=== PATIENT | male | born 1940 | race Caucasian/White ===

== ENCOUNTER 2016-06-11 09:28 | Emergency (ER) | payer SELFPAY ==
[~2016-06-11 09:28] MED LIST: ASPIRIN ENTERIC81 M1 PO; BISACODYL10 MG PO; CEPHALEXIN500 MG PO; LIPITOR40 MG PO; LISINOPRIL10 MG PO; METFORMIN HCL500 MG PO; VISTARIL25 MG PO
--- NOTE | 2016-06-11 10:20 | DIAGNOSTIC IMAGING REPORT ---
PROCEDURE: CT HEAD WITHOUT CONTRAST INDICATION: FOUND DOWN TECHNIQUE: Axial CT images were acquired through the head. Coronal and sagittal reformations were created. COMPARISON: None. FINDINGS: No intracranial hemorrhage or extraaxial fluid collections. Ventricles are normal in size, shape and position. There is no mass, mass effect or midline shift. The medina-white matter differentiation is normal. There is no edema. The calvarium is intact. The paranasal sinuses and mastoid air cells are normally aerated. The extracranial soft tissues and orbits are normal. IMPRESSION: 1. No CT evidence of acute intracranial process. 2. Findings discussed with Dr. Fernandez at 10:[address] scans at this facility use dose modulation, iterative reconstruction, and/or weight-based dosing when appropriate to reduce radiation dose to as low as reasonably achievable.
--- NOTE | 2016-06-11 10:21 | DIAGNOSTIC IMAGING REPORT ---
PROCEDURE: XR CHEST 2 VIEW INDICATION: FOUND DOWN TECHNIQUE: PA and lateral views. COMPARISON: None. FINDINGS: Lungs are clear. Cardiomegaly. Left shoulder prosthesis. Thorax is normal. IMPRESSION: 1. Cardiomegaly. Lungs clear.
--- NOTE | 2016-06-11 14:02 | ED NURSING NOTES ---
Clinical Report - Nurses [facility] [place] [address] 06/11/2016 9:29 Patient: CHARLOTTE HORTON TRIAGE Acuity: LEVEL 3. Chief Complaint: WEAKNESS. Alert. No acute distress. TYLOR COMA SCORE: Tylor Coma Scale. --09:38 Addie Morales R.N. 09:32 06/11/16. BP: 180/82. HR: 83. RR: 12. O2 saturation: 95% on room air. Temp: 98.5 F (oral). Pain level now: unknown. --09:38 Addie Morales R.N. Weight: 90.7 kg estimated. Height/Length: 72 inches Estimated. BMI: 27.1. --09:38 Addie Morales R.N. Allergies No Known Drug Allergy. --09:34 Addie Morales R.N. History Arrived by EMS. Historian: EMS. Unaccompanied. This started just prior to arrival. Treatment CAN DRYER: None. SKIN INTEGRITY ASSESSMENT: Skin integrity risk assessment was performed. Risk factors identified include restricted mobility. NUTRITIONAL RISK ASSESSMENT: The nutritional risk assessment revealed no deficiencies. FALL RISK ASSESSMENT: Fall risk assessment completed. Risk factors identified include patient age greater than 65 years and history of fall. Fall interventions initiated. Side rails up x2. Brakes on Bed in low position. Patient visible from nurses' station. Call light in reach of patient. FUNCTIONAL ASSESSMENT: Functional assessment performed: independent with the activities of daily living; hard of hearing in both ears- this hearing impairment is an ongoing problem; cognitive impairment present- this cognitive impairment is an ongoing problem. LEARNING NEEDS ASSESSMENT: A learning needs assessment was performed. Factors affecting the patient's ability to learn include physical and cognitive limitations. --09:38 Addie Morales R.N. PROBLEMS: Neuropathy. Hypertension. Corneal Ulcer. Cellulitis. Facial Cellulitis. Fall. Pruritus. Pedal Edema. Congestive Heart Failure. Anxiety Reaction. Schizophrenia. Diabetes Mellitus. Numbness of hand. Back Pain. --09:35 Addie Morales R.N. ADDITIONAL SURGERIES: Appendectomy. Hip Surgery. R hip surgery. Revision of L hip . Shoulder Surgery. --09:35 Addie Morales R.N. Assessment GENERAL / NEURO / PSYCH: Alert. Appears in no acute distress. Patient appears calm and cooperative. RESPIRATORY: Respirations not labored. CVS: Capillary refill less than 2 seconds. SKIN: Mucous membranes are pink. Skin is warm and dry. --09:38 Addie Morales R.N. Interventions ID band on patient. To treatment room. --09:38 Addie Morales R.N. NURSING PROGRESS NOTES hospital monitor, pulse oximeter and NIBP monitor placed on patient; hospital monitor- Lead II; monitor alarms on. Patient gowned. Two patient identifiers checked. Call light placed in reach. Side rails up x 2. Bed placed in lowest position. Brakes of bed on. Patient ready for evaluation- chart flagged. --09:40 Addie Morales R.N. Patient transported to [place] by stretcher with tech. --09:50 Addie Morales R.N. EKG time: (1013). EKG was ordered, performed by a tech and shown to the ED physician. --10:15 Jess Huff ER Tech1 10:06/11/2016 Site #1 started via IV in the left antecubital space with an 20g angiocath, with aseptic technique and good blood return; one attempt. Blood drawn: rainbow set. Labeled in the presence of the patient and sent to the lab. --:27 Addie Morales R.N. 10:06/11/2016 Started bag #1 1000 mL IV Fluids IV NS (Saline); at 999 mL/hr over 30 minute(s) via site #1 via IV pump. Allergies verified and confirmed 5 rights. IV patency established. IV site checked: no pain, redness, or swelling. IV flushed thoroughly pre- and post-medication administration. --: Addie Morales R.N. 11:43 06/11/16. Checked patient name and birthdate urine collected with return of yellow-colored clear urine; sample sent to lab for urinalysis. Specimen labeled in the presence of the patient. --11:43 Addie Morales R.N. 12:08 06/11/16. BP: 167/77. HR: 75. RR: 13. O2 saturation: 97% on room air. --12:08 Addie Morales R.N. 11:44 06/11/2016 IV Fluids IV NS via IV site #1 Rate Changed: bag #1 decreased to 21 mL/hr via IV pump. IV patency established. IV site checked: no pain, redness, or swelling. IV flushed thoroughly. Confirmed 5 Rights. --12:09 Addie Morales R.N. 12:08 06/11/16. The patient reports no complaints and he is calm and resting quietly. --12:08 Addie Morales R.N. 13:46 06/11/16. The patient is sleeping. --13:46 Addie Morales R.N. 13:46 06/11/16. BP: 164/75. HR: 74. RR: 16. O2 saturation: 97% on room air. --13:48 Addie Morales R.N. DISPOSITION / DISCHARGE 14:30. Condition at departure: improved. No learning barriers present. Discharge instructions provided and reviewed with the patient. Patient verbalized understanding. Written instructions provided in Belarusian. The patient was discharged home and accompanied by sales representative adding machines. He left the Emergency Department in a wheelchair and via private vehicle. Gender Studies Professor driving. Medication list reviewed and validated. --16:48 Maria Elena Noel R.N. 14:31 06/11/16. BP: 126/74. HR: 69. RR: 16. O2 saturation: 98% on room air. Temp: deferred. Pain level now: 0/10. 13:46 06/11/16. BP: 164/75. HR: 74. RR: 16. O2 saturation: 97% on room air. 12:08 06/11/16. BP: 167/77. HR: 75. RR: 13. O2 saturation: 97% on room air. 09:32 06/11/16. BP: 180/82. HR: 83. RR: 12. O2 saturation: 95% on room air. Temp: 98.5 F (oral). Pain level now: unknown. --16:48 Maria Elena Noel R.N. Locked/Released at 06/11/2016 16:48 by Maria Elena Noel R.N.
--- NOTE | 2016-06-11 14:02 | ED ORDER SUMMARY ---
..... Patient: CHARLOTTE HORTON OrderSheet [facility] VisitID: [id number] [place] [address] 75y, M Registration Date/Time: 06/11/2016 ORDER SHEET Weight: 90.7 kg (estimated) Allergies: No Known Drug Allergy GENERAL ORDERS: Chest 2V Urgent (:06/11/2016 Rashida Simental) (Ack 9:54 LNations ER Tech1) (10:25 MWinterer R.N.) CT Head wo Cont Urgent (:06/11/2016 Rashida Simental) (Ack 9:54 LNations ER Tech1) (10:25 MWinterer R.N.) Head Of Sales Promotion (Continuous) (found down) (:06/11/2016 Rashida Simental) (9:45 MWinterer R.N.) CBC w Diff Urgent (06/11/2016 Rashida Simental) (Ack 9:53 LNations ER Tech1) (10:25 MWinterer R.N.) CMP Urgent (:06/11/2016 Rashida Simental) (Ack 9:53 LNations ER Tech1) (10:25 MWinterer R.N.) UA-Culture if indicated Urgent (06/11/2016 Rashida Simental) (Ack 9:53 LNations ER Tech1) (11:53 MWinterer R.N.) PT with INR Urgent (:06/11/2016 Rashida Simental) (Ack 9:53 LNations ER Tech1) (10:25 MWinterer R.N.) Troponin-I Urgent (:06/11/2016 Rashida Simental) (Ack 9:53 LNations ER Tech1) (10:25 MWinterer R.N.) CPK Urgent (06/11/2016 Rashida Simental) (Ack 9:53 LNations ER Tech1) (10:25 MWinterer R.N.) Lactate, Serum Urgent (06/11/2016 Rashida Simental) (Ack 9:53 LNations ER Tech1) (11:21 NHouse ER Tech1) Pulse oximeter (09:43 06/11/2016 Rashida Simental) (9:45 MWinterer R.N.) EKG - ER Stat (09:43 06/11/2016 Rashida Simental) (9:45 MWinterer R.N.) MEDICATION ORDERS: IV FLUIDS: IV NS : initial bolus 500 mL (1000 mL/hr), then none - for X1 (NOW) (09:42 06/11/2016 Rashida Simental) (Ack 9:45 MWinterer R.N.) (10:27 MWinterer R.N.) ORDER SHEET NOTES: [Electronically signed by Maria Elena Noel R.N. (16:48 06/11/2016)] [Electronically signed by Fer Chaves Dr. (08:06 06/13/2016)] [Electronically locked/signed by Maria Elena Noel R.N. (16:48 06/11/2016)]
--- NOTE | 2016-06-11 14:02 | ED NURSING NOTES ---
Clinical Report - Nurses [facility] [place] [address] 06/11/2016 9:29 Patient: CHARLOTTE HORTON TRIAGE Acuity: LEVEL 3. Chief Complaint: WEAKNESS. Alert. No acute distress. TYLOR COMA SCORE: Tylor Coma Scale. --09:38 Addie Morales R.N. 09:32 06/11/16. BP: 180/82. HR: 83. RR: 12. O2 saturation: 95% on room air. Temp: 98.5 F (oral). Pain level now: unknown. --09:38 Addie Morales R.N. Weight: 90.7 kg estimated. Height/Length: 72 inches Estimated. BMI: 27.1. --09:38 Addie Morales R.N. Allergies No Known Drug Allergy. --09:34 Addie Morales R.N. History Arrived by EMS. Historian: EMS. Unaccompanied. This started just prior to arrival. Treatment MANAGER GROUP HOME: None. SKIN INTEGRITY ASSESSMENT: Skin integrity risk assessment was performed. Risk factors identified include restricted mobility. NUTRITIONAL RISK ASSESSMENT: The nutritional risk assessment revealed no deficiencies. FALL RISK ASSESSMENT: Fall risk assessment completed. Risk factors identified include patient age greater than 65 years and history of fall. Fall interventions initiated. Side rails up x2. Brakes on Bed in low position. Patient visible from nurses' station. Call light in reach of patient. FUNCTIONAL ASSESSMENT: Functional assessment performed: independent with the activities of daily living; hard of hearing in both ears- this hearing impairment is an ongoing problem; cognitive impairment present- this cognitive impairment is an ongoing problem. LEARNING NEEDS ASSESSMENT: A learning needs assessment was performed. Factors affecting the patient's ability to learn include physical and cognitive limitations. --09:38 Addie Morales R.N. PROBLEMS: Neuropathy. Hypertension. Corneal Ulcer. Cellulitis. Facial Cellulitis. Fall. Pruritus. Pedal Edema. Congestive Heart Failure. Anxiety Reaction. Schizophrenia. Diabetes Mellitus. Numbness of hand. Back Pain. --09:35 Addie Morales R.N. ADDITIONAL SURGERIES: Appendectomy. Hip Surgery. R hip surgery. Revision of L hip . Shoulder Surgery. --09:35 Addie Morales R.N. Assessment GENERAL / NEURO / PSYCH: Alert. Appears in no acute distress. Patient appears calm and cooperative. RESPIRATORY: Respirations not labored. CVS: Capillary refill less than 2 seconds. SKIN: Mucous membranes are pink. Skin is warm and dry. --09:38 Addie Morales R.N. Interventions ID band on patient. To treatment room. --09:38 Addie Morales R.N. NURSING PROGRESS NOTES manager monitoring, pulse oximeter and NIBP monitor placed on patient; manager monitoring- Lead II; monitor alarms on. Patient gowned. Two patient identifiers checked. Call light placed in reach. Side rails up x 2. Bed placed in lowest position. Brakes of bed on. Patient ready for evaluation- chart flagged. --09:40 Addie Morales R.N. Patient transported to [place] by stretcher with tech. --09:50 Addie Morales R.N. EKG time: (1013). EKG was ordered, performed by a tech and shown to the ED physician. --10:15 Jess Huff ER Tech1 10:06/11/2016 Site #1 started via IV in the left antecubital space with an 20g angiocath, with aseptic technique and good blood return; one attempt. Blood drawn: rainbow set. Labeled in the presence of the patient and sent to the lab. --:27 Addie Morales R.N. 10:06/11/2016 Started bag #1 1000 mL IV Fluids IV NS (Saline); at 999 mL/hr over 30 minute(s) via site #1 via IV pump. Allergies verified and confirmed 5 rights. IV patency established. IV site checked: no pain, redness, or swelling. IV flushed thoroughly pre- and post-medication administration. --: Addie Morales R.N. 11:43 06/11/16. Checked patient name and birthdate urine collected with return of yellow-colored clear urine; sample sent to lab for urinalysis. Specimen labeled in the presence of the patient. --11:43 Addie Morales R.N. 12:08 06/11/16. BP: 167/77. HR: 75. RR: 13. O2 saturation: 97% on room air. --12:08 Addie Morales R.N. 11:44 06/11/2016 IV Fluids IV NS via IV site #1 Rate Changed: bag #1 decreased to 21 mL/hr via IV pump. IV patency established. IV site checked: no pain, redness, or swelling. IV flushed thoroughly. Confirmed 5 Rights. --12:09 Addie Morales R.N. 12:08 06/11/16. The patient reports no complaints and he is calm and resting quietly. --12:08 Addie Morales R.N. 13:46 06/11/16. The patient is sleeping. --13:46 Addie Morales R.N. 13:46 06/11/16. BP: 164/75. HR: 74. RR: 16. O2 saturation: 97% on room air. --13:48 Addie Morales R.N. DISPOSITION / DISCHARGE 14:30. Condition at departure: improved. No learning barriers present. Discharge instructions provided and reviewed with the patient. Patient verbalized understanding. Written instructions provided in Syriac. The patient was discharged home and accompanied by rotating equipment specialist. He left the Emergency Department in a wheelchair and via private vehicle. Associate Merchandiser driving. Medication list reviewed and validated. --16:48 Maria Elena Noel R.N. 14:31 06/11/16. BP: 126/74. HR: 69. RR: 16. O2 saturation: 98% on room air. Temp: deferred. Pain level now: 0/10. 13:46 06/11/16. BP: 164/75. HR: 74. RR: 16. O2 saturation: 97% on room air. 12:08 06/11/16. BP: 167/77. HR: 75. RR: 13. O2 saturation: 97% on room air. 09:32 06/11/16. BP: 180/82. HR: 83. RR: 12. O2 saturation: 95% on room air. Temp: 98.5 F (oral). Pain level now: unknown. --16:48 Maria Elena Noel R.N. Locked/Released at 06/11/2016 16:48 by Maria Elena Noel R.N.
--- NOTE | 2016-06-11 14:02 | ED ORDER SUMMARY ---
..... Patient: CHARLOTTE HORTON OrderSheet [facility] VisitID: [id number] [place] [address] 75y, M Registration Date/Time: 06/11/2016 ORDER SHEET Weight: 90.7 kg (estimated) Allergies: No Known Drug Allergy GENERAL ORDERS: Chest 2V Urgent (:06/11/2016 Rashida Simental) (Ack 9:54 LNations ER Tech1) (10:25 MWinterer R.N.) CT Head wo Cont Urgent (:06/11/2016 Rashida Simental) (Ack 9:54 LNations ER Tech1) (10:25 MWinterer R.N.) House Fellow (Continuous) (found down) (:06/11/2016 Rashida Simental) (9:45 MWinterer R.N.) CBC w Diff Urgent (06/11/2016 Rashida Simental) (Ack 9:53 LNations ER Tech1) (10:25 MWinterer R.N.) CMP Urgent (:06/11/2016 Rashida Simental) (Ack 9:53 LNations ER Tech1) (10:25 MWinterer R.N.) UA-Culture if indicated Urgent (06/11/2016 Rashida Simental) (Ack 9:53 LNations ER Tech1) (11:53 MWinterer R.N.) PT with INR Urgent (:06/11/2016 Rashida Simental) (Ack 9:53 LNations ER Tech1) (10:25 MWinterer R.N.) Troponin-I Urgent (:06/11/2016 Rashida Simental) (Ack 9:53 LNations ER Tech1) (10:25 MWinterer R.N.) CPK Urgent (06/11/2016 Rashida Simental) (Ack 9:53 LNations ER Tech1) (10:25 MWinterer R.N.) Lactate, Serum Urgent (06/11/2016 Rashida Simental) (Ack 9:53 LNations ER Tech1) (11:21 NHouse ER Tech1) Pulse oximeter (09:43 06/11/2016 Rashida Simental) (9:45 MWinterer R.N.) EKG - ER Stat (09:43 06/11/2016 Rasihda Simental) (9:45 MWinterer R.N.) MEDICATION ORDERS: IV FLUIDS: IV NS : initial bolus 500 mL (1000 mL/hr), then none - for X1 (NOW) (09:42 06/11/2016 Rashida Simental) (Ack 9:45 MWinterer R.N.) (10:27 MWinterer R.N.) ORDER SHEET NOTES: [Electronically signed by Maria Elena Noel R.N. (16:48 06/11/2016)] [Electronically signed by Fer Chaves Dr. (08:06 06/13/2016)] [Electronically locked/signed by Maria Elena Noel R.N. (16:48 06/11/2016)]
--- NOTE | 2016-06-11 14:02 | ED CLINICAL REPORT ---
Clinical Report - Physicians/Mid Levels [facility] [address] [place] [address] 06/11/2016 9:29 Patient: CHARLOTTE HORTON Arrived- By ambulance. Historian- patient. HISTORY OF PRESENT ILLNESS Location of injuries- (none). Chief Complaint: FALL. The injury occurred last night. Occurred at home. Patient did not fall. No fainting episodes. The patient complains of moderate pain. No blow to the head, neck pain, loss of consciousness or seizure. Not dazed. REVIEW OF SYSTEMS No numbness, dizziness, loss of vision, chest pain or weakness. No nausea. He has had hearing loss (chronic). All systems otherwise negative, except as recorded above. PAST HISTORY See nurses notes. Tetanus immunization status is up-to-date. Allergies: No Known Drug Allergy. SOCIAL HISTORY Never smoker. No alcohol use or drug use. Is a local resident. ADDITIONAL NOTES The nursing notes have been reviewed. PHYSICAL EXAM Vital Signs: 06/11/2016 09:32 BP: 180/82. HR: 83. RR: 12. O2 saturation: 95%. Temp: 98.5 F. Hypertensive. Oxygen saturation normal. Appearance: Alert. Oriented X3. No acute distress. Head: Head non-tender. No swelling of head. No Gabriel's sign or raccoon eyes. Eyes: Pupillary exam: Right pupil round and reactive to light directly and consensually and with accommodation. Left pupil: round and reactive to light directly and consensually and with accommodation. Neck: No decreased ROM or muscle spasm in the neck. No pain with movement of head/neck. Painless ROM. Non-tender. No vertebral tenderness. CVS: Heart sounds normal. Pulses normal. Respiratory: Breath sounds normal. Chest nontender. Abdomen: No visible injury. Soft and nontender. Bowel sounds normal. Back: No tenderness. ROM normal. Skin: Skin intact. Skin warm and dry. Normal skin color. Normal skin turgor. Extremities: Normal inspection. Pelvis stable. Extremities atraumatic. No lower extremity edema. Neuro: Tylor Coma Scale: 15- eyes open spontaneously (4); best verbal response- oriented x 3 (5); best motor response- obeys commands (6). Oriented X 3. No alteration in mental status. No motor deficit. LABS, X-RAYS, AND EKG EKG: No acute ischemia. Normal sinus rhythm. Rate: 80. Normal P waves. Normal JENNIFER. Normal QRS complex. Normal axis. Normal ST and T waves, QT and QTc. non-pathologic Q waves. Normal sinus. The study has been interpreted contemporaneously. The study has been independently viewed by me. The EKG appears to be a good tracing. I do not agree with or confirm the computer reading of the EKG. Chest X-ray: (PROCEDURE: XR CHEST 2 VIEW INDICATION: FOUND DOWN TECHNIQUE: PA and lateral views. COMPARISON: None. FINDINGS: Lungs are clear. Cardiomegaly. Left shoulder prosthesis. Thorax is normal. IMPRESSION: 1. Cardiomegaly. Lungs clear.). Views: PA and lateral. The X-rays were independently viewed by me, interpreted by the radiologist and discussed with the radiologist. CT Head: (PROCEDURE: CT HEAD WITHOUT CONTRAST INDICATION: FOUND DOWN TECHNIQUE: Axial CT images were acquired through the head. Coronal and sagittal reformations were created. COMPARISON: None. FINDINGS: No intracranial hemorrhage or extraaxial fluid collections. Ventricles are normal in size, shape and position. There is no mass, mass effect or midline shift. The medina-white matter differentiation is normal. There is no edema. The calvarium is intact. The paranasal sinuses and mastoid air cells are normally aerated. The extracranial soft tissues and orbits are normal. IMPRESSION: 1. No CT evidence of acute intracranial process.). Head CT performed without contrast. The study was independently viewed by me, interpreted by the radiologist and discussed with the radiologist. Laboratory Tests: PT with INR: (ED: 06/11/2016 10:19) ( MsgRcvd 06/11/2016 10:42) Final results Test Result Flag Units (Reference) INR 1.2 (0.8-1.2) Low Intensity Therapy: INR 1.5-2.0 PT range 18.5-23.1Mod.Intensity Therapy: INR 2.0-3.0 PT range 23.1-31.5High Intensity Therapy: INR 2.5-3.5 PT range 27.4-35.5High Intensity Therapy 2: INR 3.0-4.0 PT range 31.5-39.3 Lactate, Serum: (ED: 06/11/2016 10:35) ( MsgRcvd 06/11/2016 11:34) Final results Test Result Flag Units (Reference) LACTIC ACID 1.2 mmol/L (0.4-2.0) CMP: (ED: 06/11/2016 10:19) ( MsgRcvd 06/11/2016 10:50) Final results Test Result Flag Units (Reference) GLUCOSE 107 mg/dL (70-110) BUN 26 H mg/dL (7-18) CREATININE 1.4 H mg/dL (0.6-1.3) Estimated GFR 52.37 mL/min Estimated GFR- >60 mL/min Note: Persistent reduction over 3 months in eGFR<60 mL/min/1.73 m2 defines CKD. Patients with eGFR values>=60 mL/min/1.73 m2 may also have CKD if evidence ofpersistent proteinuria. Additional information may be foundat www.kidney.org. SODIUM 140 mmol/L (136-145) POTASSIUM 3.9 mmol/L (3.5-5.1) CHLORIDE 107 mmol/L (98-107) CARBON DIOXIDE 28 mmol/L (21-32) CALCIUM 7.9 L mg/dL (8.5-10.1) TOTAL PROTEIN 7.0 g/dL (6.4-8.2) ALBUMIN 3.1 L g/dL (3.3-5.0) BILIRUBIN, TOTAL 0.7 mg/dL (0.0-1.0) ALKALINE PHOSPHATASE 92 U/L (46-116) AST (SGOT) 12 L U/L (15-37) ALT (SGPT) 17 U/L (12-78) CPK 113 U/L (24-260) TROPONIN I <0.05 ng/mL (0.00-1.5) TROPONIN REFERENCE RANGE:<0.1 NEGATIVE0.1-1.5 INDETERMINANT>1.5 POSITIVE . PROGRESS AND PROCEDURES Course of Care: the patient is a pleasant 75-year-old male with past medical history significant for hearing loss presenting for evaluation of fall. Patient was that he was not able to get back up after falling out of his chair. The patient reports he is unable to call for help. Patient reports no pain at this time. Patient reports no other concerning symptoms such as chest pain, shortness of breath, headache, dizziness, numbness, tingling, weakness. Patient reports no memory losshowever there is some difficulty with communicating with the patient. Patient is able to understand written language however hasn't difficulty with spoken language because of the hearing problem. No signs of stroke at this time. Patient is moving all 4 extremities with no difficulty. No facial droop noted. will be concerned of injury to the head secondary to the fall. Patient is over the age 64[address] scan would be indicated. No other tenderness or abnormality noted. Workup for patient's syncope was unremarkable. Patient without any signs of infection on urinalysis or chest x-ray. The patient's EKG is also unremarkable. Patient reports feeling much better. I discussed with patient in regards to follow-up. Patient has a neighbor which can check on him tomorrow. Patient also be getting a ride home with his neighbor. I discussed with patient need for follow-up with his primary care doctor. Discussed the patient workup, diagnosis, home care, follow-up, and return precautions. All questions answered. The patient expressed understanding of these instructions and was agreeable to them. Do not the patient is admitted to the hospital require further emergency department evaluation and workup. Patient is a stable outpatient candidate. Disposition: Discharged. Condition: good. CLINICAL IMPRESSION Fall from chair. Essential hypertension. chronic hearing loss. INSTRUCTIONS Warnings: GENERAL WARNINGS: Return or contact your physician immediately if your condition worsens or changes unexpectedly, if not improving as expected, or if other problems arise. SPECIFICALLY, return if you develop weakness, numbness, tingling, pain or incontinence. behavior changes, any pain, or other concerns. OTC Medications: Acetaminophen (available over the counter): take according to label instructions. Motrin (available over the counter): take according to label instructions. Follow-up: Return to the emergency department as needed. Follow up with your doctor in three days. Reason for referral: recheck today's concerns. Summary of care provided to patient via paper. Screening today revealed the patient's blood pressure to be in the normal range. The patient should follow up with a primary care provider for blood pressure management. Understanding of the discharge instructions verbalized by patient. (Electronically signed by Fer Chaves Dr. 06/13/2016 8:06)
--- NOTE | 2016-06-13 08:07 | ED MAR SUMMARY ---
..... Medication Administration Record [facility] [address] [place] [address] Patient: CHARLOTTE HOTRON Visit ID: [id number] 75y, M Weight: 90.7 kg Height/Length: 72 in BMI: 27.1 ALLERGIES: No Known Drug Allergy Start 10:27 06/11/2016 Addie Morales R.N. Medication Administered: IV NS (SALINE), Dose: IV Fluids over 30 minute(s), Rate: 999 mL/hr, Dispensed: 1000 mL bag, Site: #1 left AC. Medication Ordered: IV NS : initial bolus 500 mL (1000 mL/hr), then none - for X1 (NOW).
--- NOTE | 2016-06-13 08:07 | ED DISCHARGE INSTRUCTIONS ---
Patient: CHARLOTTE HORTON General Instructions [facility] VisitID: [id number] [place] [address] 75y, M Registration Date/Time: 06/11/2016 Fall from chair. Essential hypertension. chronic hearing loss. INSTRUCTIONS Warnings: GENERAL WARNINGS: Return or contact your physician immediately if your condition worsens or changes unexpectedly, if not improving as expected, or if other problems arise. SPECIFICALLY, return if you develop weakness, numbness, tingling, pain or incontinence. behavior changes, any pain, or other concerns. OTC Medications: Acetaminophen (available over the counter): take according to label instructions. Motrin (available over the counter): take according to label instructions. Follow-up: Return to the emergency department as needed. Follow up with your doctor in three days. Reason for referral: recheck today's concerns. Summary of care provided to patient via paper. Screening today revealed the patient's blood pressure to be in the normal range. The patient should follow up with a primary care provider for blood pressure management. Understanding of the discharge instructions verbalized by patient. ADDITIONAL INFORMATION High Blood Pressure --Established High Blood Pressure (Hypertension) is a chronic disease. The cause is unknown in most cases. It can usually be controlled with lifestyle changes and/or medicines. Symptoms of high blood pressure may include headache, dizziness, visual changes, chest pain and shortness of breath. Sometimes it causes no symptoms at all. However, even if there are no symptoms, untreated high blood pressure increases the risk of heart attack, also known as acute myocardial infarction, or AMI, and stroke. It is a serious health risk and should not be ignored. A normal blood pressure is 120/80 or less. The first (top) number is the "systolic" pressure. The second (bottom) number is the "diastolic" pressure. Hypertension exists when either the top number is 140 or higher, OR the bottom number is 90 or higher on repeated measurements. Home Care: All patients with high blood pressure should do the following to lower their pressure. If you are on medicines, then these methods may reduce or eliminate your need for medicines in the future. Begin a weight loss program if you are overweight. Reduce your salt intake. Avoid high salt foods (olives, pickles, smoked meats, salted potato chips, etc.). Do not add salt to your food at the table. Use only small amounts of salt when cooking. Begin an exercise program. Discuss with your doctor what type of exercise program would be best for you. It doesn't have to be difficult. Even brisk walking for 20 minutes three times a week is a good form of exercise. Avoid medicines which contain heart stimulants. This includes many cold and sinus decongestant pills and sprays as well as diet pills. Check the warnings about hypertension on the label. Stimulants such as amphetamine or cocaine could be lethal for someone with hypertension. Never take these. Limit your caffeine intake or switch to caffeine-free products. Stop smoking. If you are a long-time smoker, this can be hard. Enroll in a stop-smoking program to improve your chance of success. Learning how to handle stress better is an important part of any program to lower blood pressure. Learn about relaxation methods such as meditation, yoga or biofeedback. If medicines were prescribed, take them exactly as directed. Missing doses may cause your blood pressure get out of control. Consider buying an automatic blood pressure machine (available at most pharmacies). Use this to monitor your blood pressure at home and report the results to your doctor. Follow Up: Regular visits to your own physician for blood pressure checks and medicine adjustment is an important part of your care. Make a follow-up appointment as directed by our staff. Get Prompt Medical Attention if any of the following occur: Chest pain or shortness of breath Severe headache Throbbing or rushing sound in the ears Nosebleed Sudden severe abdominal pain Extreme drowsiness, confusion or fainting Dizziness or vertigo (dizziness with spinning sensation) Weakness of an arm or leg or one side of the face Difficulty with speech or vision Mechanical Fall You have had a fall today. It appears that the cause is mechanical. That means that you slipped, tripped or lost your balance. If your fall had been due to fainting or a seizure, further tests would be required. Home Care: Rest today and resume your normal activities when you are feeling back to normal. If you were injured during the fall, follow the advice from your doctor regarding care of your injury. You may use acetaminophen (Tylenol) or ibuprofen (Motrin, Advil) to control pain, unless another pain medicine was prescribed. [NOTE: If you have chronic liver or kidney disease or ever had a stomach ulcer or GI bleeding, talk with your doctor before using these medicines.] Fall Prevention: Was there anything that caused your fall that can be fixed, removed, or replaced? Make your home safe by keeping walkways clear of objects you may trip over. Use non-slip pads under rugs. Do not walk in poorly lit areas. Do not stand on chairs or wobbly ladders. Use caution when reaching overhead or looking upward. This position can cause a loss of balance. Be sure your shoes fit properly, have non-slip bottoms and are in good condition. Be cautious when going up and down curbs, and walking on uneven sidewalks. If your balance is poor, consider using a cane or walker. Stay as active as you can. Balance, flexibility, strength, and endurance all come from exercise. They all play a role in preventing falls. Follow Up with your doctor or as advised by our staff. Get Prompt Medical Attention if any of the following occur: Repeated mechanical falls, or unexplained falls Dizziness, fainting or seizure Severe headache Chest pain or shortness of breath Palpitations (very rapid or very slow or irregular heartbeat) Blood in vomit, stools (black or red color) Weakness of an arm or leg or one side of the face Difficulty with speech or vision Fall, Uncertain Cause You have had a fall today. but the cause of your fall is not certain. Falls can occur due to slipping, tripping or losing your balance. A fall can also occur from a fainting spell or seizure. Because the cause of your fall today is not certain, it is possible that a fainting spell or seizure was the cause. This means that it could happen again, without warning. If you fall again, without a cause, then you should return to this facility promptly to have further tests. Otherwise, follow up with your doctor as explained below. Home Care: 1) Rest today and resume your normal activities as soon as you are feeling back to normal. It is best to remain with someone who can check on you for the next 24 hours to watch for another episode of falling. 2) If you were injured during the fall, follow the advice from your doctor regarding care of your injury. 3) If you become light-headed or dizzy, lie down immediately or sit and lean forward with your head down. 4) As a precaution, do not drive a car or operate dangerous equipment, do not take a bath alone (use a shower instead) and do not swim alone until you see your doctor. A condition causing fainting or seizures must be ruled out before resuming these activities. 5)You may use acetaminophen (Tylenol) or ibuprofen (Motrin, Advil) to control pain, unless another pain medicine was prescribed. [ NOTE : If you have chronic liver or kidney disease or ever had a stomach ulcer or GI bleeding, talk with your doctor before using these medicines.] 6) Keep your appointments for any further testing that may have been scheduled for you. Follow Up: Unless, given other advice, call your doctor on the next office day to advise of your fall and to schedule an appointment. Get Prompt Medical Attention if any of the following occur: -- Another unexplained fall -- Dizziness, fainting or seizure -- Severe headache -- Chest pain or shortness of breath -- Palpitations (very rapid or very slow or irregular heart beat) -- Blood in vomit, stools (black or red color) -- Weakness of an arm or leg or one side of the face -- Difficulty with speech or vision You have been given the following additional information: Hypertension, Established Fall, Mechanical Fall, Uncertain Cause (Electronically signed by Fer Chaves Dr. 06/13/2016 8:06)
--- NOTE | 2016-06-13 08:07 | ED MAR SUMMARY ---
..... Medication Administration Record [facility] [address] [address] Patient: CHARLOTTE HORTON Visit ID: [id number] 75y, M Weight: 90.7 kg Height/Length: 72 in BMI: 27.1 ALLERGIES: No Known Drug Allergy Start 10:27 06/11/2016 Addie Morales R.N. Medication Administered: IV NS (SALINE), Dose: IV Fluids over 30 minute(s), Rate: 999 mL/hr, Dispensed: 1000 mL bag, Site: #1 left AC. Medication Ordered: IV NS : initial bolus 500 mL (1000 mL/hr), then none - for X1 (NOW).
--- NOTE | 2016-06-13 08:07 | ED MED RECONCILIATION SUMMARY ---
Patient: CORBY HORTONLEVIAMMY Medication Reconciliation Report [facility] VisitID: [id number] [place] [address] 75y, M Registration Date/Time: 06/11/2016 Weight: 90.7 kg Height/Length: 72 in. BMI: 27.1 ALLERGIES: No Known Drug Allergy The patient's Home Medications are listed below: Not obtained. The source(s) of the original Home Medication information: Not obtained. The following Medications were given to the patient in the Emergency Department: IV NS IV Fluids bolus 0, then 999 mL/hr, administered: 06/11/2016 10:27:00 AM The following Medications were prescribed to the patient: Acetaminophen (available over the counter): take according to label instructions. -- Fer Chaves Dr. Motrin (available over the counter): take according to label instructions. -- Fer Chaves Dr.
--- NOTE | 2016-06-13 08:07 | ED MED RECONCILIATION SUMMARY ---
Patient: CORBY HORTONLEVIAMMY Medication Reconciliation Report [facility] VisitID: [id number] [place] [address] 75y, M Registration Date/Time: 06/11/2016 Weight: 90.7 kg Height/Length: 72 in. BMI: 27.1 ALLERGIES: No Known Drug Allergy The patient's Home Medications are listed below: Not obtained. The source(s) of the original Home Medication information: Not obtained. The following Medications were given to the patient in the Emergency Department: IV NS IV Fluids bolus 0, then 999 mL/hr, administered: 06/11/2016 10:27:00 AM The following Medications were prescribed to the patient: Acetaminophen (available over the counter): take according to label instructions. -- Fer Chaves Dr. Motrin (available over the counter): take according to label instructions. -- Fer Chaves Dr.
== END 2016-06-11 14:30 | disposition home or self-care (01) ==
LOC: ED SRH 09:28
DX: R55 Syncope and collapse (principal); W07.XXXA Fall from chair, initial encounter; Y93.9 Activity, unspecified; Y99.9 Unspecified external cause status; Y92.009 Unspecified place in unspecified non-institutional (private) residence as the place of occurrence of the external cause; I10 Essential (primary) hypertension; H91.8X9 Other specified hearing loss, unspecified ear
CPT/HCPCS: 90004; 90074; 90100; 90616; 92031; 92610; 94060; 95059

== ENCOUNTER 2016-06-20 16:29 | Inpatient (IN) | payer SELFPAY ==
--- NOTE | 2016-06-20 18:08 | DIAGNOSTIC IMAGING REPORT ---
PROCEDURE: XR CHEST 1 VIEW INDICATION: WEAK TECHNIQUE: Portable AP view 05:46 p.m. COMPARISON: Chest x-ray 06/11/2016 FINDINGS: Lungs are clear. Stable mild cardiomegaly. Mediastinum and pulmonary vessels are normal. Left glenohumeral joint arthroplasty . IMPRESSION: 1. No acute changes 2. Stable mild cardiomegaly
--- NOTE | 2016-06-20 20:00 | ED NURSING NOTES ---
Clinical Report - [facility] [place] [address] 06/20/2016 16:29 Patient: CHARLOTTE HORTON TRIAGE Triage time 16:36. Acuity: LEVEL 3. Chief Complaint: WEAKNESS (and failure to thrive). Alert. No acute distress. ( Per EMS: pt. slide to the ground out of bed and was screaming for the neighbors who called EMS. Neighbors are concerned he needs assisted living because he is unable to live on his own. He is not able to ambulate without assistance.). SEPSIS SCREEN: Sepsis Screen. Negative (no infection suspected/documented). TYLOR COMA SCORE: Tylor Coma Scale: 10; best verbal response- disoriented (4); best motor response- obeys commands (6). --16:42 Malini West R.N. 16:36 06/20/16. BP: 166/92. HR: 80. RR: 18. O2 saturation: 98%. Temp: 97.7 F. Cesar-Heaton pain scale: 4/10. --16:42 Malini West R.N. ( correction to prior charting: pt. is alert and oriented x3.). --18:24 Malini West R.N. Weight: 79.3 kg estimated. Height/Length: 68 inches Estimated. BMI: 26.6. --16:38 Malini West R.N. Medications None. --16:42 Malini West R.N. Allergies No Known Drug Allergy. --16:42 Malini West R.N. History Arrived by EMS. Historian: patient. Unaccompanied. Primary physician (unknown). This started today. Treatment RENTAL SALES ASSOCIATE: None. See EMS report. PAST MEDICAL HX: Immunizations: status is unknown. SOCIAL HX: Never smoker. No alcohol use or drug use. ABUSE ASSESSMENT: No report of abuse. NUTRITIONAL RISK ASSESSMENT: The nutritional risk assessment revealed no deficiencies. FUNCTIONAL ASSESSMENT: Functional assessment: no impairments noted. LEARNING NEEDS ASSESSMENT: The learning needs assessment revealed no barriers. --16:42 Malini West R.N. FUNCTIONAL ASSESSMENT: Functional assessment performed: hard of hearing in both ears- this hearing impairment is an ongoing problem. --16:46 Malini West R.N. FALL RISK ASSESSMENT: Fall risk assessment completed per protocol. Risk factors identified include severe pain and patient age greater than 65 years, history of fall and impairment of mobility and hearing. Fall interventions initiated. Patient placed on stretcher. Side rails up x2. Brakes on Bed in low position. Patient identified as a fall risk by ID band. Call light in reach of patient. Instructed not to get up without assistance. --16:47 Malini West R.N. PROBLEMS: Neuropathy. Hypertension. Corneal Ulcer. Cellulitis. Facial Cellulitis. Abrasion(s). Fall. Pruritus. Pedal Edema. Congestive Heart Failure. Anxiety Reaction. Schizophrenia. Diabetes Mellitus. Numbness of hand. Back Pain. --16:43 Malini West R.N. ADDITIONAL SURGERIES: Appendectomy. Hip Surgery. R hip surgery. Revision of L hip . Shoulder Surgery. --16:43 Malini West R.N. Interventions ID band on patient. Transported via stretcher. --16:42 Malini West R.N. PHYSICAL ASSESSMENT To room via stretcher. GENERAL / NEURO / PSYCH: Alert. Appears in no acute distress. ( pt. is alert but confused.). HEENT: No facial asymmetry noted. Mucous membranes are pink. RESPIRATORY: Respirations not labored. CVS: Capillary refill less than 2 seconds. Pulses within normal limits. SKIN: Skin intact. Skin is warm and dry. --16:44 Malini West R.N. NURSING PROGRESS NOTES diamond wheel molder, pulse oximeter and NIBP monitor placed on patient; innovation manager- Lead II; monitor alarms on. Patient gowned. Head of bed elevated. Two patient identifiers checked. Call light placed in reach. Side rails up x 2. Bed placed in lowest position. Brakes of bed on. Patient ready for evaluation- chart flagged. --16:44 Malini West R.N. EKG time: (5564). EKG was performed by a tech and shown to the ED physician. --16:54 Shyla Ramos 17:13 06/20/2016 Site #1 started via IV in the left antecubital space with an 20g angiocath, with aseptic technique and good blood return; two attempts (red and purple tops). --17:13 Virginia Lee R.N. 17:35 06/20/16. BP: 174/79. HR: 77 (regular and normal rate). RR: 14. O2 saturation: 99%. --17:36 Malini West R.N. Finger stick glucose: 128 mg/dL; ordered; performed by nurse; result shown to the ED physician. --17:36 Malini West R.N. Portable chest x-ray ordered, performed and shown to the ED physician. --17:57 Virginia Lee R.N. 17:58 06/20/2016 Started bag #1 1000 mL IV Fluids IV NS (Saline); at 250 mL/hr over 4 hour(s) via site #1 via IV pump. Allergies verified and confirmed 5 rights. IV patency established. IV site checked: no pain, redness, or swelling. IV flushed thoroughly pre- and post-medication administration. --17:58 Virginia Lee R.N. In/out catheterization. (attempt. Unable to obtain urine. Pt. given urinal.). --18:26 Malini West R.N. ( pt. walked to the bathroom with FWW. Tolerated well. Assisted with urinal.). --18:46 Malini West R.N. Patient ID band checked for patient name, birthdate and medical record number: patient confirmed. Instructions provided to collect clean catch urine and patient verbalized understanding. Clean catch urine collected with return of yellow-colored clear urine; sample sent to lab for urinalysis. Specimen labeled in the presence of the patient. --18:47 Malini West R.N. 18:51 06/20/16. BP: 195/85. HR: 79. RR: 16. O2 saturation: 100%. --18:51 Malini West R.N. ( 1851: pt. lying in bed.). --18:52 Malini West R.N. 18:55 06/20/16. BP: 172/89. HR: 90. RR: 17. Additional comments: pt. standing. --18:55 Malini West R.N. 20:52 06/20/16. BP: 178/80. HR: 75. RR: 19. O2 saturation: 98%. --20:53 Malini West R.N. ( Dr. Akhtar in with pt for admit consult.). --20:53 Malini West R.N. ( attempt to call report. AC RN to call back.). --21:23 Malini West R.N. 22:01 06/20/2016 IV Fluids IV NS Continued: upon admission at the rate of 250 mL/hr. 100 mL remaining bag #1. IV patency established. IV site checked: no pain, redness, or swelling. IV flushed thoroughly. --22:01 Malini West R.N. DISPOSITION / DISCHARGE Report was given to a nurse via a phone call. Report included patient's care, treatment, medications, reviewed medication reconcilliation, and condition (including any recent changes or anticipated changes). All questions were answered. --21:57 Malini West R.N. Admitted to Acute Care. Patient's personal items; items were placed in belongings bag, given to the patient and transported with the patient. --21:58 Malini West R.N. 22:00 06/20/16. BP: 176/89. HR: 76. RR: 15. O2 saturation: 99%. Temp: 98.1 F. Pain level now 10. --22:00 Malini West R.N. Departure time: 2204. --22:20 Malini West R.N. Locked/Released at 06/20/2016 22:21 by Malini West R.N.
--- NOTE | 2016-06-20 20:00 | ED CLINICAL REPORT ---
Clinical Report - Physicians/Mid Levels [facility] [address] [place] [address] 06/20/2016 16:29 Patient: CHARLOTTE HORTON Time Seen: 16:50 Jun 20 2016. Arrived- By ambulance. Historian- patient and EMS personnel. CPT: ER phys charges level 5 plus (#[id number]). EKG interpretation (#[id number]). HISTORY OF PRESENT ILLNESS Chief Complaint: WEAKNESS. ( Found on ground and could not get up. Family and neighbors concerned as he is not eating and continues to be weak and unable to care for self. Pt slid out of bed to the floor . Did not fall or have head injury.). Severity described as moderate at its maximum. When seen in the E.D., severity described as moderate. Modifying factors- relieved by nothing. Not worsened by anything. Described as feeling weak all over. Is still present. The patient has had hearing loss (chronically). No nausea or vomiting. Similar symptoms previously: Milder (1 weeks ago). Diagnosis: (unknown). Recent medical care: The patient was seen recently at this facility in the emergency department (1 weeks ago). Seen for similar symptoms. Evaluation/treatment: x-rays, CXR, CT scan, labs, CBC, electrolytes, urinalysis and EKG. Diagnosis: (Discharged to follow up.). REVIEW OF SYSTEMS No headache, double vision, fever, sore throat or cough. No difficulty breathing, abdominal pain, diarrhea, difficulty with urination or skin rash. No enlarged lymph nodes or chills. The patient has had weakness. He has had difficulty walking. All systems otherwise negative, except as recorded above. PAST HISTORY ( Neuropathy. Hypertension. Corneal Ulcer. Cellulitis. Facial Cellulitis. Fall. Pruritus. Pedal Edema. Congestive Heart Failure. Anxiety Reaction. Schizophrenia. Diabetes Mellitus. Numbness of hand. Back Pain. ADDITIONAL SURGERIES: Appendectomy. Hip Surgery. R hip surgery. Revision of L hip . Shoulder Surgery.). SOCIAL HISTORY Never smoker. No alcohol use or drug use. ADDITIONAL NOTES The nursing notes have been reviewed. PHYSICAL EXAM Vital Signs: 06/20/2016 16:36 BP: 166/92. HR: 80. RR: 18. O2 saturation: 98%. Temp: 97.7 F. Cesar-Heaton pain scale: 4/10. Appearance: Alert. No acute distress. Eyes: Pupils equal, round and reactive to light. No nystagmus. Extraocular movements normal. ENT: Normal ENT inspection. TM's normal. Moist mucous membranes. Pharynx normal. Neck: Normal inspection. Neck supple. CVS: Normal heart rate and rhythm. 3/6 holosystolic systolic murmur with radiation across the chest. Pulses normal. Respiratory: No respiratory distress. Breath sounds normal. Abdomen: Soft and nontender. Back: Normal inspection. Skin: Skin warm. Normal skin color. No rash. Extremities: Extremities exhibit normal ROM. No lower extremity edema. Neuro: Alert. Oriented X 3. Mood/affect normal. Speech normal. Cranial nerves normal (as tested). No cerebellar findings. No motor deficit. No sensory deficit. Reflexes normal. (VENETIE). LABS, X-RAYS, AND EKG EKG: Normal EKG. Chest X-ray: No acute disease. Mild cardiomegaly. Views: AP (portable). Technique: good. The X-rays were independently viewed by me and interpreted by the radiologist. Laboratory Tests: CBC w Diff: (ED: 06/21/2016 01:45) ( MsgRcvd 06/21/2016 02:26) Final results Test Result Flag Units (Reference) WHITE BLOOD COUNT 5.6 K/uL (4.5-11.5) RED BLOOD COUNT 4.56 M/uL (4.50-5.90) HEMOGLOBIN 10.8 L gm/dL (13.5-17.5) HEMATOCRIT 33.7 L % (41.0-53.0) MEAN CELL VOLUME 74 L fL (80-100) MEAN CORPUSCULAR HGB 24 L pg (26-34) MEAN CORPUSCULAR HGB CONC 32 g/dL (31-37) RED CELL DISTRIBUTION WIDTH 13.9 % (11.6-14.8) PLATELET COUNT 271 K/uL (150-400) NEUTROPHIL % 47.2 L % (50-75) LYMPH % 37.8 % (25-40) MONO % 8.7 % (3-14) EOSINOPHIL % 6.0 H % (0-4) BASOPHIL % 0.3 % (0-2) CBC w Diff: (ED: 06/21/2016 01:45) ( MsgRcvd 06/21/2016 02:08) Final results Test Result Flag Units (Reference) WHITE BLOOD COUNT 5.6 K/uL (4.5-11.5) RED BLOOD COUNT 4.56 M/uL (4.50-5.90) HEMOGLOBIN 10.8 L gm/dL (13.5-17.5) HEMATOCRIT 33.7 L % (41.0-53.0) MEAN CELL VOLUME 74 L fL (80-100) MEAN CORPUSCULAR HGB 24 L pg (26-34) MEAN CORPUSCULAR HGB CONC 32 g/dL (31-37) RED CELL DISTRIBUTION WIDTH 13.9 % (11.6-14.8) PLATELET COUNT 271 K/uL (150-400) NEUTROPHIL % 47.2 L % (50-75) LYMPH % 37.8 % (25-40) MONO % 8.7 % (3-14) EOSINOPHIL % 6.0 H % (0-4) BASOPHIL % 0.3 % (0-2) PT with INR: (ED: 06/21/2016 00:01) ( MsgRcvd 06/21/2016 02:11) Final results Test Result Flag Units (Reference) INR 1.2 (0.8-1.2) Low Intensity Therapy: INR 1.5-2.0 PT range 18.5-23.1Mod.Intensity Therapy: INR 2.0-3.0 PT range 23.1-31.5High Intensity Therapy: INR 2.5-3.5 PT range 27.4-35.5High Intensity Therapy 2: INR 3.0-4.0 PT range 31.5-39.3 APTT 38 H SECONDS (24-34) FIBRINOGEN 446 mg/dL (193-455) D-DIMER QUANTITATIVE 1.47 H ug/mLFEU (0.27-0.52) The primary value of this quantitative assay relates toits negative predictive value (i.e. exclusion) of pulmonaryembolism/deep vein thrombosis/DIC.Elevated levels of d-dimer may also occur with:, age, cancer, inflammation, liver disease,post-op, infection, hematoma, coronary disease, peripheralarteriopathy, bleeding disorders and thrombolytic treatment.Results should be correlated with other clinical andradiological data.Testing Methodology: Latex Immunoassay CHEM 13 PANEL: (ED: 06/21/2016 01:45) ( MsgRcvd 06/21/2016 02:37) Final results Test Result Flag Units (Reference) GLUCOSE 101 mg/dL (70-110) BUN 20 H mg/dL (7-18) CREATININE 1.2 mg/dL (0.6-1.3) Estimated GFR >60 mL/min Estimated GFR- >60 mL/min Note: Persistent reduction over 3 months in eGFR<60 mL/min/1.73 m2 defines CKD. Patients with eGFR values>=60 mL/min/1.73 m2 may also have CKD if evidence ofpersistent proteinuria. Additional information may be foundat www.kidney.org. SODIUM 144 mmol/L (136-145) POTASSIUM 4.1 mmol/L (3.5-5.1) CHLORIDE 108 H mmol/L (98-107) CARBON DIOXIDE 26 mmol/L (21-32) CALCIUM 7.7 L mg/dL (8.5-10.1) TOTAL PROTEIN 6.3 L g/dL (6.4-8.2) ALBUMIN 3.0 L g/dL (3.3-5.0) BILIRUBIN, TOTAL 0.7 mg/dL (0.0-1.0) ALKALINE PHOSPHATASE 87 U/L (46-116) AST (SGOT) 13 L U/L (15-37) ALT (SGPT) 14 U/L (12-78) MAGNESIUM 1.8 mg/dL (1.8-2.4) CPK 82 U/L (24-260) TROPONIN I <0.05 ng/mL (0.00-1.5) TROPONIN REFERENCE RANGE:<0.1 NEGATIVE0.1-1.5 INDETERMINANT>1.5 POSITIVE [id number]: (ED: 06/21/2016 01:45) ( [facility] 06/21/2016 02:43) Final results Test Result Flag Units (Reference) CALCULATED A1C 6.8 H % (4.5-6.2) The [place] [employer] recommends that aprimary goal of therapy should be a HbA1c of <7% and thatphysicians should reevaluate the treatment regimen inpatients with HbA1c values consistently >8%. ESTIMATED AVERAGE GLUCOSE 148 mg/dL BNP: (ED: 06/21/2016 01:45) ( [facility] 06/21/2016 02:29) Final results Test Result Flag Units (Reference) B-TYPE NATRIURETIC PEPTIDE 236 H pg/ml (5-100) UA-Culture if indicated: (ED: 06/20/2016 18:45) ( [facility] 06/20/2016 19:24) Final results Test Result Flag Units (Reference) URINE COLOR YELLOW URINE APPEARANCE CLEAR URINE GLUCOSE NEGATIVE (NEGATIVE) URINE BILIRUBIN NEGATIVE (NEGATIVE) URINE KETONE NEGATIVE (NEGATIVE) URINE SPECIFIC GRAVITY >= 1.030 (1.010-1.030) URINE PH 6.0 (5.0-8.0) URINE PROTEIN 2+ (NEGATIVE) URINE UROBILINOGEN 0.2 EU/dL (0.2-1.0) URINE NITRITE NEGATIVE (NEGATIVE) URINE BLOOD 2+ (NEGATIVE) URINE LEUK ESTERASE NEGATIVE (NEGATIVE) URINE RBC 5-10 rbc/hpf (0-1) URINE WBC 0-1 wbc/hpf (0-1) URINE EPITHELIAL CELLS 1-3 EPI/hpf (0-5) URINE BACTERIA NONE SEEN (NONE SEEN) URINE COMMENT CULT NOT INDICATED 1+ MUCOUSURINE CULTURES ARE SET-UP BASED ON THE FOLLOWING CRITERIA:POSITIVE NITRITEPOSITIVE LEUKOCYTE ESTERASEGREATER THAN 10 WHITE BLOOD CELLSMODERATE (2+) OR GREATER BACTERIA CBC w Diff: (ED: 06/20/2016 18:16) ( [facility] 06/20/2016 18:32) Final results Test Result Flag Units (Reference) WHITE BLOOD COUNT 5.7 K/uL (4.5-11.5) RED BLOOD COUNT 4.96 M/uL (4.50-5.90) HEMOGLOBIN 11.7 L gm/dL (13.5-17.5) HEMATOCRIT 37.3 L % (41.0-53.0) MEAN CELL VOLUME 75 L fL (80-100) MEAN CORPUSCULAR HGB 24 L pg (26-34) MEAN CORPUSCULAR HGB CONC 31 g/dL (31-37) RED CELL DISTRIBUTION WIDTH 14.3 % (11.6-14.8) PLATELET COUNT 247 K/uL (150-400) NEUTROPHIL % 53.8 % (50-75) LYMPH % 33.4 % (25-40) MONO % 8.0 % (3-14) EOSINOPHIL % 4.5 H % (0-4) BASOPHIL % 0.3 % (0-2) BNP: (ED: 06/20/2016 18:16) ( [facility] 06/20/2016 18:54) Final results Test Result Flag Units (Reference) B-TYPE NATRIURETIC PEPTIDE 153 H pg/ml (5-100) Urine Drug Screen: (ED: 06/20/2016 18:45) ( [facility] 06/20/2016 19:29) Final results Test Result Flag Units (Reference) AMPHETAMINE/METHAMPHETAMINE NEGATIVE (NEGATIVE) BARBITURATE NEGATIVE (NEGATIVE) BENZODIAZEPINE NEGATIVE (NEGATIVE) CANNABINOID NEGATIVE (NEGATIVE) COCAINE NEGATIVE (NEGATIVE) ECSTASY NEGATIVE (NEGATIVE) METHADONE NEGATIVE (NEGATIVE) OPIATE NEGATIVE (NEGATIVE) The urine drug screen is a qualitative screening test fordrug overdose and abuse. All screen results should beconsidered as presumptive.Drugs screened for are as follows:BenzodiazepinesCocaineAmphetamines/MetamphetaminesTHC (Tetrahydrocannabinol)OpiatesBarbituratesEcstasyMethadonePositive results are unconfirmed. For confirmation, notifythe lab for the specimen to be sent to the reference lab.All confirmations must be performed by a differentmethodology.The ingestion of natural herbal and plant productscontaining Ephedra/Ephedra metabolites can produce in urineone or more substances capable of cross reacting withamphetamine/methamphetamine immunoassays. These testsprovide a preliminary result only. A more specificalternative chemical method must be used to obtain aconfirmed analytical result. CHEM 13 PANEL: (ED: 06/20/2016 17:06) ( MsgRcvd 06/20/2016 18:38) Final results Test Result Flag Units (Reference) GLUCOSE 127 H mg/dL (70-110) BUN 22 H mg/dL (7-18) CREATININE 1.3 mg/dL (0.6-1.3) Estimated GFR 57.04 mL/min Estimated GFR- >60 mL/min Note: Persistent reduction over 3 months in eGFR<60 mL/min/1.73 m2 defines CKD. Patients with eGFR values>=60 mL/min/1.73 m2 may also have CKD if evidence ofpersistent proteinuria. Additional information may be foundat www.kidney.org. SODIUM 144 mmol/L (136-145) POTASSIUM 4.3 mmol/L (3.5-5.1) CHLORIDE 109 H mmol/L (98-107) CARBON DIOXIDE 28 mmol/L (21-32) CALCIUM 8.4 L mg/dL (8.5-10.1) TOTAL PROTEIN 6.8 g/dL (6.4-8.2) ALBUMIN 3.1 L g/dL (3.3-5.0) BILIRUBIN, TOTAL 0.5 mg/dL (0.0-1.0) ALKALINE PHOSPHATASE 91 U/L (46-116) AST (SGOT) 14 L U/L (15-37) ALT (SGPT) 15 U/L (12-78) CPK 101 U/L (24-260) MAGNESIUM 2.0 mg/dL (1.8-2.4) TROPONIN I <0.05 L ng/mL (0.00-1.5) TROPONIN REFERENCE RANGE:<0.1 NEGATIVE0.1-1.5 INDETERMINANT>1.5 POSITIVE . PROGRESS AND PROCEDURES Course of Care: IV NS walk test is performed with Walker patient is somewhat unsteady. Suspect poor by mouth intake as per the reason for this patient's progressive weakness. Patient lives alone and has no family or caretakers. He is at high risk of fall and injury. He was too weak today to get up off the floor. Discussed case with on-call health care provider, (Hermilo). Reviewed test results. Agreed upon treatment plan and decision to admit. Health care provider will see patient in ED. Patient/family counseled. Old medical records ordered. Disposition orders written. Disposition: Admitted to Acute Care. CLINICAL IMPRESSION Acute onset unsteadiness with falling episodes. Acute generalized weakness. Unable to care for self. (Electronically signed by Anand Burris MD 06/22/2016 8:26)
--- NOTE | 2016-06-20 20:00 | ED NURSING NOTES ---
Clinical Report - Nurses [facility] [place] [address] 06/20/2016 16:29 Patient: CHARLOTTE HORTON TRIAGE Triage time 16:36. Acuity: LEVEL 3. Chief Complaint: WEAKNESS (and failure to thrive). Alert. No acute distress. ( Per EMS: pt. slide to the ground out of bed and was screaming for the neighbors who called EMS. Neighbors are concerned he needs assisted living because he is unable to live on his own. He is not able to ambulate without assistance.). SEPSIS SCREEN: Sepsis Screen. Negative (no infection suspected/documented). TYLOR COMA SCORE: Tylor Coma Scale: 10; best verbal response- disoriented (4); best motor response- obeys commands (6). --16:42 Malini West R.N. 16:36 06/20/16. BP: 166/92. HR: 80. RR: 18. O2 saturation: 98%. Temp: 97.7 F. Cesar-Heaton pain scale: 4/10. --16:42 Malini West R.N. ( correction to prior charting: pt. is alert and oriented x3.). --18:24 Malini West R.N. Weight: 79.3 kg estimated. Height/Length: 68 inches Estimated. BMI: 26.6. --16:38 Malini West R.N. Medications None. --16:42 Malini West R.N. Allergies No Known Drug Allergy. --16:42 Malini West R.N. History Arrived by EMS. Historian: patient. Unaccompanied. Primary physician (unknown). This started today. Treatment MAGNETO SPECIALIST: None. See EMS report. PAST MEDICAL HX: Immunizations: status is unknown. SOCIAL HX: Never smoker. No alcohol use or drug use. ABUSE ASSESSMENT: No report of abuse. NUTRITIONAL RISK ASSESSMENT: The nutritional risk assessment revealed no deficiencies. FUNCTIONAL ASSESSMENT: Functional assessment: no impairments noted. LEARNING NEEDS ASSESSMENT: The learning needs assessment revealed no barriers. --16:42 Malini West R.N. FUNCTIONAL ASSESSMENT: Functional assessment performed: hard of hearing in both ears- this hearing impairment is an ongoing problem. --16:46 Malini West R.N. FALL RISK ASSESSMENT: Fall risk assessment completed per protocol. Risk factors identified include severe pain and patient age greater than 65 years, history of fall and impairment of mobility and hearing. Fall interventions initiated. Patient placed on stretcher. Side rails up x2. Brakes on Bed in low position. Patient identified as a fall risk by ID band. Call light in reach of patient. Instructed not to get up without assistance. --16:47 Malini West R.N. PROBLEMS: Neuropathy. Hypertension. Corneal Ulcer. Cellulitis. Facial Cellulitis. Abrasion(s). Fall. Pruritus. Pedal Edema. Congestive Heart Failure. Anxiety Reaction. Schizophrenia. Diabetes Mellitus. Numbness of hand. Back Pain. --16:43 Malini West R.N. ADDITIONAL SURGERIES: Appendectomy. Hip Surgery. R hip surgery. Revision of L hip . Shoulder Surgery. --16:43 Malini West R.N. Interventions ID band on patient. Transported via stretcher. --16:42 Malini West R.N. PHYSICAL ASSESSMENT To room via stretcher. GENERAL / NEURO / PSYCH: Alert. Appears in no acute distress. ( pt. is alert but confused.). HEENT: No facial asymmetry noted. Mucous membranes are pink. RESPIRATORY: Respirations not labored. CVS: Capillary refill less than 2 seconds. Pulses within normal limits. SKIN: Skin intact. Skin is warm and dry. --16:44 Malini West R.N. NURSING PROGRESS NOTES child monitor, pulse oximeter and NIBP monitor placed on patient; surveillance monitor- Lead II; monitor alarms on. Patient gowned. Head of bed elevated. Two patient identifiers checked. Call light placed in reach. Side rails up x 2. Bed placed in lowest position. Brakes of bed on. Patient ready for evaluation- chart flagged. --16:44 Malini West R.N. EKG time: (5384). EKG was performed by a tech and shown to the ED physician. --16:54 Shyla Ramos 17:13 06/20/2016 Site #1 started via IV in the left antecubital space with an 20g angiocath, with aseptic technique and good blood return; two attempts (red and purple tops). --17:13 Virginia Lee R.N. 17:35 06/20/16. BP: 174/79. HR: 77 (regular and normal rate). RR: 14. O2 saturation: 99%. --17:36 Malini West R.N. Finger stick glucose: 128 mg/dL; ordered; performed by nurse; result shown to the ED physician. --17:36 Malini West R.N. Portable chest x-ray ordered, performed and shown to the ED physician. --17:57 Virginia Lee R.N. 17:58 06/20/2016 Started bag #1 1000 mL IV Fluids IV NS (Saline); at 250 mL/hr over 4 hour(s) via site #1 via IV pump. Allergies verified and confirmed 5 rights. IV patency established. IV site checked: no pain, redness, or swelling. IV flushed thoroughly pre- and post-medication administration. --17:58 Virginia Lee R.N. In/out catheterization. (attempt. Unable to obtain urine. Pt. given urinal.). --18:26 Malini West R.N. ( pt. walked to the bathroom with FWW. Tolerated well. Assisted with urinal.). --18:46 Malini West R.N. Patient ID band checked for patient name, birthdate and medical record number: patient confirmed. Instructions provided to collect clean catch urine and patient verbalized understanding. Clean catch urine collected with return of yellow-colored clear urine; sample sent to lab for urinalysis. Specimen labeled in the presence of the patient. --18:47 Malini West R.N. 18:51 06/20/16. BP: 195/85. HR: 79. RR: 16. O2 saturation: 100%. --18:51 Malini West R.N. ( 1851: pt. lying in bed.). --18:52 Malini West R.N. 18:55 06/20/16. BP: 172/89. HR: 90. RR: 17. Additional comments: pt. standing. --18:55 Malini West R.N. 20:52 06/20/16. BP: 178/80. HR: 75. RR: 19. O2 saturation: 98%. --20:53 Malini West R.N. ( Dr. Akhtar in with pt for admit consult.). --20:53 Malini West R.N. ( attempt to call report. AC RN to call back.). --21:23 Malini West R.N. 22:01 06/20/2016 IV Fluids IV NS Continued: upon admission at the rate of 250 mL/hr. 100 mL remaining bag #1. IV patency established. IV site checked: no pain, redness, or swelling. IV flushed thoroughly. --22:01 Malini West R.N. DISPOSITION / DISCHARGE Report was given to a nurse via a phone call. Report included patient's care, treatment, medications, reviewed medication reconcilliation, and condition (including any recent changes or anticipated changes). All questions were answered. --21:57 Malini West R.N. Admitted to Acute Care. Patient's personal items; items were placed in belongings bag, given to the patient and transported with the patient. --21:58 Malini West R.N. 22:00 06/20/16. BP: 176/89. HR: 76. RR: 15. O2 saturation: 99%. Temp: 98.1 F. Pain level now 10. --22:00 Malini West R.N. Departure time: 2204. --22:20 Malini West R.N. Locked/Released at 06/20/2016 22:21 by Malini West R.N.
--- NOTE | 2016-06-20 20:00 | ED ORDER SUMMARY ---
..... Patient: CHARLOTTE HORTON OrderSheet [facility] VisitID: [id number] [place] [address] 75y, M Registration Date/Time: 06/20/2016 ORDER SHEET Weight: 79.3 kg (estimated) Allergies: No Known Drug Allergy GENERAL ORDERS: EKG - ER Stat (16:46 06/20/2016 Surinder ArmstrongNNely verbal order read back to Nicolle ABDULLAHI) (Ack 16:47 LMuller) (16:54 LMuller) Chest 1V Urgent (17:48 06/20/2016 Nicolle ABDULLAHI) (Ack 17:51 TBergley) (17:57 LSullivan R.N.) Cardiac Panel Stat (17:48 06/20/2016 Nicolle ABDULLAHI) (Ack 17:51 TBergley) (17:52 LMuller) Urine Drug Screen Urgent (17:48 06/20/2016 Nicolle ABDULLAHI) (Ack 17:51 TBergley) (19:49 TBergley) UA-Culture if indicated Urgent (17:48 06/20/2016 Nicolle ABDULLAHI) (Ack 17:51 TBergley) (19:49 TBergley) BNP Urgent (18:02 06/20/2016 Nicolle ABDULLAHI) (Ack 18:07 TBergley) (19:49 TBergley) - (orthostatics) (18:09 06/20/2016 Nicolle ABDULLAHI) (Ack 18:11 TBergley) (19:49 TBergley) -- (Walk test if able.) (18:09 06/20/2016 Nicolle ABDULLAHI) (Ack 18:11 TBergley) (19:49 TBergley) MEDICATION ORDERS: IV FLUIDS: IV Saline Lock (17:11 06/20/2016 LSullivan R.N. per protocol) (17:13 LSullivan R.N.) IV NS : initial bolus none -, then 250 mL/hr for 4h (NOW); Routine (17:48 06/20/2016 Nicolle ABDULLAHI) (17:58 LSullivan R.N.) ORDER SHEET NOTES: [Electronically signed by Malini West R.N. (:06/20/2016)] [Electronically signed by Anand Burris MD (:06/22/2016)] [Electronically locked/signed by Malini West R.N. (:06/20/2016)]
--- NOTE | 2016-06-20 20:00 | ED ORDER SUMMARY ---
..... Patient: CHARLOTTE HORTON OrderSheet [facility] VisitID: [id number] [place] [address] 75y, M Registration Date/Time: 06/20/2016 ORDER SHEET Weight: 79.3 kg (estimated) Allergies: No Known Drug Allergy GENERAL ORDERS: EKG - ER Stat (16:46 06/20/2016 Surinder ArmstrongNNely verbal order read back to Nicolle ABDULLAHI) (Ack 16:47 LMuller) (16:54 LMuller) Chest 1V Urgent (17:48 06/20/2016 Nicolle ABDULLAHI) (Ack 17:51 TBergley) (17:57 LSullivan R.N.) Cardiac Panel Stat (17:48 06/20/2016 Nicolle ABDULLAHI) (Ack 17:51 TBergley) (17:52 LMuller) Urine Drug Screen Urgent (17:48 06/20/2016 Nicolle ABDULLAHI) (Ack 17:51 TBergley) (19:49 TBergley) UA-Culture if indicated Urgent (17:48 06/20/2016 Nicolle ABDULLAHI) (Ack 17:51 TBergley) (19:49 TBergley) BNP Urgent (18:02 06/20/2016 Nicolle ABDULLAHI) (Ack 18:07 TBergley) (19:49 TBergley) - (orthostatics) (18:09 06/20/2016 Nicolle ABDULLAHI) (Ack 18:11 TBergley) (19:49 TBergley) -- (Walk test if able.) (18:09 06/20/2016 Nicolle ABDULLAHI) (Ack 18:11 TBergley) (19:49 TBergley) MEDICATION ORDERS: IV FLUIDS: IV Saline Lock (17:11 06/20/2016 LSullivan R.N. per protocol) (17:13 LSullivan R.N.) IV NS : initial bolus none -, then 250 mL/hr for 4h (NOW); Routine (17:48 06/20/2016 Nicolle ABDULLAHI) (17:58 LSullivan R.N.) ORDER SHEET NOTES: [Electronically signed by Malini West R.N. (:06/20/2016)] [Electronically signed by Anand Burris MD (:06/22/2016)] [Electronically locked/signed by Malini West R.N. (:06/20/2016)]
--- NOTE | 2016-06-20 22:40 | HISTORY AND PHYSICAL ---
ADMITTED: 06/20/2016 CHIEF COMPLAINT: 1. Fall HISTORY OF PRESENT ILLNESS: A 75-year-old male presents to [facility] emergency department after a fall at home. The patient states he slid off his bed to the floor. He was unable to stand up. He denies head injury. He apparently called for help repeatedly. The neighbors called 911 when the patient was found to be on the floor and screaming. Neighbors expressed concern to the medics that the patient needs some assistance and is unable to live on his own as he cannot ambulate safely without assistance. Medics transported the patient to the emergency department, where the patient complains of pain in his legs. The patient is very hard of hearing, although can hear and answer appropriately if questions are shouted in his right ear. History is obtained from the patient, who seems to answer them reliably, though in his medical history, history of schizophrenia and anxiety are listed. At the time of my evaluation, the patient notes that he has had pain in his chest, though not today. He states he has been having chest pain off and on for about a year, approximately once a month. He also notes he has had swelling in his legs for approximately 1 year and that he has pain in his legs. He notes his legs are painful today but is unable to localize the pain to a certain area and states that there is pain all through his legs. He notes that his leg pain problem started with his hip surgeries. His past medical history lists neuropathy. The patient denies chest pain at present or shortness of breath at present. MEDICAL/SURGICAL HISTORY: Past medical history remarkable for hypertension, cellulitis, falls, pedal edema, congestive heart failure, anxiety reaction, schizophrenia, diabetes mellitus, and back pain. Surgeries: Appendectomy, bilateral hip surgeries, and shoulder surgery. MEDICATIONS: 1. None. The patient admits to taking medications in the remote past, but none recently. ALLERGIES: 1. NONE KNOWN. SOCIAL HISTORY: Single, retired male, living alone. He states he is from his family. He denies divorce. He also denies pain a . He states he was from his when he had to leave [place]. The patient is a [employer] and states he goes by the name, Brother Nelson. Smoking: None. Alcohol: None. Drug use: None. FAMILY HISTORY: The patient states he does not know the medical history of his family. He was apparently from his family on leaving [place] approximately 40 years ago. REVIEW OF SYSTEMS: Constitutional: The patient denies headache, seizures, head injury. HEENT: The patient admits to hearing problems. He denies vision problems, rhinorrhea, or ear pain. Cardiac: The patient admits to heart murmur. He states he has had this for over a year. He does not recall any testing of it. He admits to chest pain, but denies shortness of breath or paroxysmal nocturnal dyspnea. Respiratory: Denies shortness of breath, cough, or wheeze. Gastrointestinal: Denies nausea, vomiting, diarrhea, constipation, bright red blood per rectum. Genitourinary: Denies dysuria, frequency, or hematuria. PHYSICAL EXAMINATION: GENERAL: Well-developed, well-nourished, elderly male in no acute distress. VITAL SIGNS: Blood pressure 166/92, heart rate 80, respirations 18, SaO2 98%, temperature 97.7. HEENT: Clear. NECK: Supple without adenopathy or thyromegaly. CHEST: Clear to auscultation and percussion. HEART: A 3/6 systolic murmur, loudest in the right upper sternal border. Carotids 2+ and symmetric without bruit. ABDOMEN: Positive bowel sounds. Soft, nontender, without hepatosplenomegaly or masses. BACK: Straight without CVA tenderness. GENITAL: Normal male external genitalia. EXTREMITIES: Edema 2+ is noted. There is some wrinkling as it appears that the edema has decreased recently. NEUROLOGIC: The patient is able to move all extremities, but is generally weak. Attempts at ambulation in the emergency department showed the patient was unable to ambulate independently. LAB/IMAGING: Urinalysis: Specific gravity greater than 1.030, pH 6.0, protein 2+ , urobilinogen 0.2, nitrite negative, blood 2+, leukocyte esterase negative, RBC 5 -10 WBC 0-1, epithelial cells 1-3. Urine drug screen negative. WBC 5.7, hemoglobin 11.7, hematocrit 37.3, platelets 247. BNP 153. Glucose 127, BUN 22, creatinine 1.3, sodium 144, potassium 4.3, chloride 109, bicarbonate 28. Total bilirubin 0.5, alkaline phosphatase 91, AST 14, ALT 15. CPK 101. Magnesium 2.0. Troponin less than 0.05. Chest x-ray is obtained showing no acute changes, stable mild cardiomegaly, and left glenohumeral joint arthroplasty. EKG shows normal sinus rhythm with LVH, poor anterior R-wave progression, and upsloping ST segments anteriorly. IMPRESSION: 1. Congestive heart failure with acute exacerbation. Though BNP is not dramatically elevated, I suspect the patient has acute exacerbation of congestive heart failure complicated by some immediate dehydration after his fall. 2. Dehydration, acute. 3. Fall, recurrent. 4. Chest pain, rule out myocardial infarction. 5. Diabetes mellitus, diet controlled, by history. 6. The patient is unable to safely take care of himself or transfer independently. PLAN: Admit to [facility]. We will provide some hydration and concomitant gentle diuresis. Serial cardiac enzymes and EKG will be obtained. We will maintain the patient on telemetry. Physical therapy consultation will be ordered.
--- NOTE | 2016-06-20 22:43 | HISTORY AND PHYSICAL ---
ADMITTED: 06/20/2016 ADDENDUM Plan of care including code status discussed with the patient. The patient requests FULL CODE status.
--- NOTE | 2016-06-20 22:43 | HISTORY AND PHYSICAL ---
ADMITTED: 06/20/2016 ADDENDUM Plan of care including code status discussed with the patient. The patient requests FULL CODE status.
[2016-06-20 23:05] VITALS: BP 178/97
[2016-06-20 23:30] VITALS: BP 150/82
[2016-06-21 01:18] VITALS: BP 125/72
--- NOTE | 2016-06-21 02:26 | Progress Note ---
Subjective General Called about patient at 0130 as he was verbally unresponsive and had a right facial droop. Code stroke called and pt transported to ER where Dr. Silva assumed care and facilitated evaluation. CT showed no distinct stroke. Patient was last at baseline with no stroke sx at 2348. His sx gradually resolved during and following CT. Phone consult by Dr. Silva resulted in decision to proceed with CTA and defer tPa due to resolving sx with only residual of pronator drift on right arm. Pt returned to full alertness and follopwed commands. Of interest pt was initially aphasic, then began to speak only Gabonese , a language he did not use in prior hospital visits or earlier in this admission, and seemed unable to speak Mexican. He then began to speak Mexican again. CTA ordered. Physical Exam Vital Signs / I&Os Vital Signs Date Time Temp Pulse Resp B/P Pulse O2 O2 Flow FiO2 Ox Delivery Rate 06/21 0118 98.4 73 16 125/72 98 Room Air 06/20 2330 98.1 78 22 150/82 100 06/20 2305 79 18 178/97 100 I&O 06/20 0800 06/20 1600 06/21 0000 Intake Total 0 Output Total 0 Balance 0 General Appearance Found unresponsive with right facial droop. During code stroke sx resolved to where only pronator drift on right remained. Assessment and Plan Problem List 1. Cerebrovascular accident (CVA) with involvement of right side of body Plan Code stroke done. Stroke not visible on acute CT. CTA showed 70% left internal carotid stenosis. tPa not given per protocol due to rapidly resolving symptoms. Will require stroke rehab. Discussed by Dr. Silva with neurologist at [facility] and decision was made to transfer to [facility] for specialty care. Pt agrees with plan. 2. Carotid arterial disease Plan Follow up pre [facility] [place].
--- NOTE | 2016-06-21 02:26 | Progress Note ---
Subjective General Called about patient at 0130 as he was verbally unresponsive and had a right facial droop. Code stroke called and pt transported to ER where Dr. Silva assumed care and facilitated evaluation. CT showed no distinct stroke. Patient was last at baseline with no stroke sx at 2348. His sx gradually resolved during and following CT. Phone consult by Dr. Silva resulted in decision to proceed with CTA and defer tPa due to resolving sx with only residual of pronator drift on right arm. Pt returned to full alertness and follopwed commands. Of interest pt was initially aphasic, then began to speak only Slovak , a language he did not use in prior hospital visits or earlier in this admission, and seemed unable to speak Yemeni. He then began to speak Yemeni again. CTA ordered. Physical Exam Vital Signs / I&Os Vital Signs Date Time Temp Pulse Resp B/P Pulse O2 O2 Flow FiO2 Ox Delivery Rate 06/21 0118 98.4 73 16 125/72 98 Room Air 06/20 2330 98.1 78 22 150/82 100 06/20 2305 79 18 178/97 100 I&O 06/20 0800 06/20 1600 06/21 0000 Intake Total 0 Output Total 0 Balance 0 General Appearance Found unresponsive with right facial droop. During code stroke sx resolved to where only pronator drift on right remained. Assessment and Plan Problem List 1. Cerebrovascular accident (CVA) with involvement of right side of body Plan Code stroke done. Stroke not visible on acute CT. CTA showed 70% left internal carotid stenosis. tPa not given per protocol due to rapidly resolving symptoms. Will require stroke rehab. Discussed by Dr. Silva with neurologist at [facility] and decision was made to transfer to [facility] for specialty care. Pt agrees with plan. 2. Carotid arterial disease Plan Follow up pre [facility] [place].
--- NOTE | 2016-06-21 03:38 | Provider's Discharge Care Plan ---
Problem, Goal, Plan Problem List 1. Cerebrovascular accident (CVA) with involvement of right side of body Goals: Improve disease control Instructions: Transfer to [facility] [place] 2. Carotid arterial disease Goals: Improve disease control Instructions: Transfer 3. Acute exacerbation of CHF (congestive heart failure) Goals: Improve disease control Instructions: Take meds as directed 4. Weakness Goals: Improve disease control Instructions: Transfer 5. Hypertension Goals: Improve disease control Instructions: Take meds as directed 6. 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 Valvular heart disease Goals: Improved health/wellness Instructions: Transfer
--- NOTE | 2016-06-21 03:38 | Provider's Discharge Care Plan ---
Problem, Goal, Plan Problem List 1. Cerebrovascular accident (CVA) with involvement of right side of body Goals: Improve disease control Instructions: Transfer to [facility] [place] 2. Carotid arterial disease Goals: Improve disease control Instructions: Transfer 3. Acute exacerbation of CHF (congestive heart failure) Goals: Improve disease control Instructions: Take meds as directed 4. Weakness Goals: Improve disease control Instructions: Transfer 5. Hypertension Goals: Improve disease control Instructions: Take meds as directed 6. 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 Valvular heart disease Goals: Improved health/wellness Instructions: Transfer
--- NOTE | 2016-06-21 04:30 | DISCHARGE SUMMARY ---
ADMIT DATE: 06/20/2016 DISCHARGE DATE: 06/21/2016 ADMITTING DIAGNOSES: 1. Congestive heart failure with acute exacerbation 2. Acute dehydration 3. Recurrent falls 4. Chest pain, rule out myocardial infarction 5. Diabetes mellitus, diet controlled 6. Inability to care for self DISCHARGE DIAGNOSES: 1. Cerebrovascular accident with right hemiparesis 2. Congestive heart failure, new 3. Acute dehydration 4. Recurrent falls 5. Chest pain with some recurrent symptoms shortly following hospitalization, which resolved with GI cocktail. No acute changes on EKG or telemetry or enzymes. 6. Diabetes mellitus, diet controlled by history. The patient not monitoring or taking medications. 7. Hypertension, on no medications at home 8. Hyperlipidemia, on no medications at home 9. Patient unable to take care of himself due to difficulty with transfers and ambulation BRIEF HISTORY: The patient presented with a fall at home and inability to get up. He was transferred to the emergency department by the ambulance. In the emergency department, he had no focal neurologic signs. A similar presentation 1 week earlier had been evaluated with a CT of the head, which was benign at that time. CT was not repeated on admission this time. EKG was unchanged on admission from baseline and showed no acute changes. The patient was admitted for evaluation of weakness, mild acute exacerbation of congestive heart failure and also some acute dehydration. HOSPITAL COURSE: The patient was admitted. Serial cardiac enzymes and EKGs were ordered. Approximately 1 hour following admission, the patient had some chest pain and EKG was unchanged. The symptom was resolved with GI cocktail promptly. The patient had no other associated symptoms with his chest pain. Approximately 1 hour later, the patient was unresponsive to verbal commands, though he seemed alert. He had a right facial droop. Code stroke was therefore called. Workup included a CT of the head which showed no acute change without contrast. As the CT was being read, the patient's symptoms began to improve. Interestingly, he began to speak Mongolian and not Mexican. The patient is of [place] background, but apparently is also fluent in Mongolian, however, he did not spoken Mongolian on presentation and was fluent in Mexican. At this time, as his stroke was resolving, he seemed unable to speak in Mexican. The stroke then improved. He returned to speaking Mexican. The right-sided weakness improved and the right facial droop resolved. He, however, continued to have some right pronator drift and states he felt weak on the right side with his hand and leg. The course was reviewed with Neurologist at [facility] for stroke evaluation. The decision was made not to use tPA because of resolving symptomatology. CT angiogram was then performed showing 70% narrowing of the left internal carotid. The decision was made in consultation with the neurologist at [facility] to transfer the patient to [facility] for further evaluation and treatment. Transfer will be expedited by ambulance.
--- NOTE | 2016-06-21 07:23 | DIAGNOSTIC IMAGING REPORT ---
PROCEDURE: CT HEAD WITHOUT CONTRAST INDICATION: Altered mental status, initial encounter TECHNIQUE: Noncontrast axial images with sagittal and coronal reformations. COMPARISON: Head CT 06/11/2016 FINDINGS: Mild cortical atrophy and normal ventricular system. Decreased attenuation of the left hemispheric white matter with slight progression. No acute hemorrhage or midline shift. Mild left maxillary sinus disease. Mastoids are clear. IMPRESSION: 1. Slight progression of left hemispheric areas of decreased attenuation suggestive of subacute and chronic ischemic changes. 2. Preliminary results submitted by Dr. Downing, [facility] radiology.
--- NOTE | 2016-06-21 07:55 | DIAGNOSTIC IMAGING REPORT ---
PROCEDURE: CTA HEAD AND NECK INDICATION: CODE STROKE, initial encounter TECHNIQUE: 100 ml of Isovue 370 injected intravenously and axial images were obtained from the vertex through the upper mediastinum with 3D sagittal and coronal MIP reconstructions. COMPARISON: Head CT 06/21/2016 FINDINGS: AORTIC ARCH: Mild atherosclerosis. RIGHT CAROTID SYSTEM: Mild atherosclerosis of the proximal ICA with less than 50% stenosis. LEFT CAROTID SYSTEM: Normal left common carotid artery. There are two stenotic areas of the proximal ICA: Proximal stenosis approximately 70% distal stenosis 80-99%. Distal ICA is normal. VERTEBROBASILAR SYSTEM: Focal calcified plaque of the distal right vertebral artery with greater than 70% stenosis. Left vertebral artery is normal. INTRACRANIAL ANTERIOR CIRCULATION: The anterior and middle cerebral arteries are within normal limits without aneurysm or occlusion. INTRACRANIAL POSTERIOR CIRCULATION: Basilar and posterior cerebral arteries are within normal limits without aneurysm or occlusion. IMPRESSION: 1. Two short segment stenoses of the proximal left ICA, 70% and 80-99%. 2. Short segment stenosis greater than 70% of the distal intracranial segment of the right vertebral artery 3. Preliminary results submitted by Dr. Downing, [facility] radiology. All CT scans at this facility use dose modulation, iterative reconstruction, and/or weight-based dosing when appropriate to reduce radiation dose to as low as reasonably achievable.
--- NOTE | 2016-06-22 08:27 | ED MED RECONCILIATION SUMMARY ---
Patient: VERONICA HORTONBIMAL Medication Reconciliation Report [facility] VisitID: [id number] [address] [place] [address] 75y, M Registration Date/Time: 06/20/2016 Weight: 79.3 kg Height/Length: 68 in. BMI: 26.6 ALLERGIES: No Known Drug Allergy The patient's Home Medications are listed below: NONE. The source(s) of the original Home Medication information: Not obtained. The following Medications were given to the patient in the Emergency Department: IV NS IV Fluids bolus 0, then 250 mL/hr, administered: 06/20/2016 5:58:00 PM The following Medications were prescribed to the patient: None.
--- NOTE | 2016-06-22 08:27 | ED MAR SUMMARY ---
..... Medication Administration Record [facility] [address] [place] [address] Patient: CHARLOTTE HORTON Visit ID: [id number] 75y, M Weight: 79.3 kg Height/Length: 68 in BMI: 26.6 ALLERGIES: No Known Drug Allergy Start 17:58 06/20/2016 Virginia Lee RNelyNNely, Continued Upon Admission 22:01 06/20/2016 Mlaini West RNelyNNely Medication Administered: IV NS (SALINE), Dose: IV Fluids over 4 hour(s), Rate: 250 mL/hr, Dispensed: 1000 mL bag, Site: #1 left AC. Medication Ordered: IV NS : initial bolus none -, then 250 mL/hr for 4h (NOW); Routine.
--- NOTE | 2016-06-22 08:27 | ED MAR SUMMARY ---
..... Medication Administration Record [facility] [address] [place] [address] Patient: CHARLOTTE HORTON Visit ID: [id number] 75y, M Weight: 79.3 kg Height/Length: 68 in BMI: 26.6 ALLERGIES: No Known Drug Allergy Start 17:58 06/20/2016 Virginia Lee RNelyNNely, Continued Upon Admission 22:01 06/20/2016 Malini West RNelyNNely Medication Administered: IV NS (SALINE), Dose: IV Fluids over 4 hour(s), Rate: 250 mL/hr, Dispensed: 1000 mL bag, Site: #1 left AC. Medication Ordered: IV NS : initial bolus none -, then 250 mL/hr for 4h (NOW); Routine.
--- NOTE | 2016-06-22 08:27 | ED MED RECONCILIATION SUMMARY ---
Patient: VERONICA HORTONBIMAL Medication Reconciliation Report [facility] VisitID: [id number] [address] [place] [address] 75y, M Registration Date/Time: 06/20/2016 Weight: 79.3 kg Height/Length: 68 in. BMI: 26.6 ALLERGIES: No Known Drug Allergy The patient's Home Medications are listed below: NONE. The source(s) of the original Home Medication information: Not obtained. The following Medications were given to the patient in the Emergency Department: IV NS IV Fluids bolus 0, then 250 mL/hr, administered: 06/20/2016 5:58:00 PM The following Medications were prescribed to the patient: None.
--- NOTE | 2016-06-22 08:27 | ED DISCHARGE INSTRUCTIONS ---
Patient: CHARLOTTE HORTON General Instructions [facility] VisitID: [id number] [place] [address] 75y, M Registration Date/Time: 06/20/2016 Acute onset unsteadiness with falling episodes. Acute generalized weakness. Unable to care for self. ADDITIONAL INFORMATION Mechanical Fall You have had a fall today. It appears that the cause is mechanical. That means that you slipped, tripped or lost your balance. If your fall had been due to fainting or a seizure, further tests would be required. Home Care: Rest today and resume your normal activities when you are feeling back to normal. If you were injured during the fall, follow the advice from your doctor regarding care of your injury. You may use acetaminophen (Tylenol) or ibuprofen (Motrin, Advil) to control pain, unless another pain medicine was prescribed. [NOTE: If you have chronic liver or kidney disease or ever had a stomach ulcer or GI bleeding, talk with your doctor before using these medicines.] Fall Prevention: Was there anything that caused your fall that can be fixed, removed, or replaced? Make your home safe by keeping walkways clear of objects you may trip over. Use non-slip pads under rugs. Do not walk in poorly lit areas. Do not stand on chairs or wobbly ladders. Use caution when reaching overhead or looking upward. This position can cause a loss of balance. Be sure your shoes fit properly, have non-slip bottoms and are in good condition. Be cautious when going up and down curbs, and walking on uneven sidewalks. If your balance is poor, consider using a cane or walker. Stay as active as you can. Balance, flexibility, strength, and endurance all come from exercise. They all play a role in preventing falls. Follow Up with your doctor or as advised by our staff. Get Prompt Medical Attention if any of the following occur: Repeated mechanical falls, or unexplained falls Dizziness, fainting or seizure Severe headache Chest pain or shortness of breath Palpitations (very rapid or very slow or irregular heartbeat) Blood in vomit, stools (black or red color) Weakness of an arm or leg or one side of the face Difficulty with speech or vision Weakness [Uncertain Cause] Based on your exam today, the exact cause of your weakness is not certain. However, your weakness does not seem to be a sign of a serious illness at this time. Sometimes the signs of a serious illness take more time to appear. Therefore, please watch for the warning signs listed below. Home Care: 1) Rest at home today. Do not over-exert yourself. 2) Take your medicine as prescribed. 3) For the next few days, drink extra fluids (unless your doctor wants you to restrict fluids for other reasons). Do not skip meals. Follow Up with your doctor or as advised if you are not starting to feel better within TWO days. Get Prompt Medical Attention if any of the following occur: Worsening of your symptoms Chest, arm, neck, jaw or upper back pain Dizziness or fainting Trouble breathing Unable to eat or drink normal amounts Nausea, frequent vomiting, frequent diarrhea Abdominal pain Numbness or weakness of the face, one arm or one leg Slurred speech, confusion, trouble speaking, walking or seeing Blood in vomit or stool (black or red color) Fever of 100.4 F (38 C) or higher, or as directed by your healthcare provider You have been given the following additional information: Fall, Mechanical Weakness, Unk Cause (Electronically signed by Anand Burris MD 06/22/2016 8:26)
== END 2016-06-21 04:20 | disposition short-term general hospital (02) | DRG 194 ==
LOC: ED SRH 16:29 → TRANS SRH 20:13 → ACUTE2 SRH 22:22
PROVIDERS: ADMIT Emergency Medicine
DX: I11.0 Hypertensive heart disease with heart failure (principal); I50.9 Heart failure, unspecified; R07.9 Chest pain, unspecified; I63.9 Cerebral infarction, unspecified; R47.01 Aphasia; G81.91 Hemiplegia, unspecified affecting right dominant side; R29.810 Facial weakness; E86.0 Dehydration; E11.40 Type 2 diabetes mellitus with diabetic neuropathy, unspecified; E78.5 Hyperlipidemia, unspecified; I65.22 Occlusion and stenosis of left carotid artery; Z91.81 History of falling
CPT/HCPCS: 90004; 90074; 90098; 90100; 90616; 91286; 91320; 91556; 92610; 92720; 92760; 92761; 92762; 92763; 92764; 92765; 92766; 92767; 94001; 94050; 94060; 95059